=== PATIENT | male | born 1990 | race Two or more races ===

== ENCOUNTER 2018-08-06 16:34 | Emergency (ER) | payer BC ==
--- NOTE | 2018-08-06 18:04 | EDM.PDOC ---
ED HPI GENERAL MEDICAL PROBLEM - General Chief Complaint: Lower Extremity Injury/Pain Stated Complaint: RIGHT KNEE INJURY Time Seen by Provider: 08/06/18 17:30 Source of Information: Reports: Patient History Limitations: Reports: No Limitations - History of Present Illness INITIAL COMMENTS - FREE TEXT/NARRATIVE: HISTORY AND PHYSICAL: History of present illness: Patient is a 28 year old male who presents to the emergency room with complaints of medial and lateral right knee pain. He denies any injury, trauma or falls. He states that he has noticed mild pain to both the medial and lateral knee when ambulating, bearing weight or having to fully extend the extremity. He denies any numbness or tingling of the affected extremity. No calf pain or popliteal discomfort. No area of erythema or soft tissue swelling Review of systems: As per history of present illness and below otherwise all systems reviewed and negative. Past medical history: As per history of present illness and as reviewed below otherwise noncontributory. Surgical history: As per history of present illness and as reviewed below otherwise noncontributory. Social history: See social history for further information Family history: As per history of present illness and as reviewed below otherwise noncontributory. Physical exam: General: Well-developed and well-nourished 28 showed male. Alert and oriented. Nontoxic appearing and in no acute distress. HEENT: Atraumatic, normocephalic, pupils equal and reactive bilaterally, negative for conjunctival pallor or scleral icterus, mucous membranes moist, TMs normal bilaterally, throat clear, neck supple, nontender, trachea midline. No drooling or trismus noted. No meningeal signs. No hot potato voice noted. Lungs: Clear to auscultation, breath sounds equal bilaterally, chest nontender. Heart: S1S2, regular rate and rhythm without overt murmur Abdomen: Soft, nondistended, nontender. Negative for masses or hepatosplenomegaly. Negative for costovertebral tenderness. Pelvis: Stable nontender. Genitourinary: Deferred. Rectal: Deferred. Skin: Intact, warm, dry. No lesions or rashes noted. Extremities: Atraumatic, moves all extremities per self without difficulty or deficits, strong pedal pulse, cap refill less than 3 seconds. Negative drawer test, no knee instability noted, negative for cords or calf pain. Neurovascular unremarkable. Neuro: Awake, alert, oriented. Cranial nerves II through XII unremarkable. Cerebellum unremarkable. Motor and sensory unremarkable throughout. Exam nonfocal. Notes: We discussed doing an x-ray, he would like to move forward with this being completed. I offered Toradol IM, he declines. Discussed the limitations that x- ray offers. He will likely need to follow up with the orthopedic provider if he continues to have knee pain as this does sound like a ligament injury. Xray shows mild suprapatellar joint effusion. No fracture or dislocations. We will give her an Brayden wrap and crutches. Encouraged him to follow up with his primary care provider or the orthopedic provider in the next few days. Supportive care measures were reviewed and discussed. He voices understanding and is agreeable to plan of care. Denies any further questions or concerns at this time. Diagnostics: Knee x-ray Therapeutics: Crutches Prescription: Diclofenac Impression: Right knee pain Right knee effusion Plan: 1. Rest, ice, elevate the extremity as able. Please use the splint for comfort. 2. Tylenol and/or ibuprofen as needed for pain management. 3. Please follow-up with the orthopedic provider and/or your primary care provider in the next 1-2 days. Return to the ED as needed and as discussed Definitive disposition and diagnosis as appropriate pending reevaluation and review of above. right knee Pain Score (Numeric/FACES): 6 - Related Data Allergies Allergy/AdvReac Type Severity Reaction Status Date / Time No Known Allergies Allergy Verified 08/06/18 17:05 Home Meds: Home Meds Diclofenac Sodium [Voltaren] 50 mg PO TID PRN #20 tab.ec 08/06/18 [Rx] Past Medical History - Past Health History Medical/Surgical History: Denies Medical/Surgical History Musculoskeletal History: Reports: Gout - Past Surgical History Male Surgical History: Reports: Kidney Stone Extraction Social & Family History - Family History Family Medical History: Noncontributory - Tobacco Use Smoking Status *Q: Never Smoker - Caffeine Use Caffeine Use: Reports: Coffee - Recreational Drug Use Recreational Drug Use: No Review of Systems - Review of Systems Review Of Systems: ROS reveals no pertinent complaints other than HPI. ED EXAM, GENERAL - Physical Exam Exam: See Below (See dictation) Course - Vital Signs Last Recorded V/S: Last Vital Signs Temp 97.7 F 08/06/18 17:02 Pulse 101 H 08/06/18 17:02 Resp 16 08/06/18 17:02 BP 158/81 H 08/06/18 17:02 Pulse Ox 95 08/06/18 17:02 - Orders/Labs/Meds Orders: Active Orders 24 hr Category Date Time Status Knee 3V Rt [CR] Stat Exams 08/06/18 17:58 Taken DME for Discharge [COMM] Stat Oth 08/06/18 17:58 Ordered Departure - Departure Time of Disposition: 18:25 Disposition: Home, Self-Care 01 Clinical Impression: Effusion, right knee Right knee pain Qualifiers: Chronicity: acute Qualified Code(s): M25.561 - Pain in right knee - Discharge Information Prescriptions: Diclofenac Sodium [Voltaren] 50 mg PO TID PRN #20 tab.ec PRN Reason: Pain Instructions: Knee Sprain, Adult, [id number], Knee Effusion Referrals: PCP,None [Primary Care Provider] - Forms: ED Department Discharge Additional Instructions: The following information is given to patients seen in the emergency department who are being discharged to home. This information is to outline your options for follow-up care. We provide all patients seen in our emergency department with a follow-up referral. The need for follow-up, as well as the timing and circumstances, are variable depending upon the specifics of your emergency department visit. If you don't have a primary care physician on staff, we will provide you with a referral. We always advise you to contact your personal physician following an emergency department visit to inform them of the circumstance of the visit and for follow-up with them and/or the need for any referrals to a consulting specialist. The emergency department will also refer you to a specialist when appropriate. This referral assures that you have the opportunity for follow-up care with a specialist. All of these measure are taken in an effort to provide you with optimal care, which includes your follow-up. Under all circumstances we always encourage you to contact your private physician who remains a resource for coordinating your care. When calling for follow-up care, please make the office aware that this follow-up is from your recent emergency room visit. If for any reason you are refused follow-up, please contact the [facility] Emergency Department at and asked to speak to the emergency department charge nurse. [facility] [address] [place] [address] [facility] [address] [place] [address] [facility] Professional [facility] [address] [place] [address], [address] [place] [address] 1. Rest, ice, elevate the extremity as able. Please use the crutches for comfort. 2. Tylenol and/or ibuprofen as needed for pain management. 3. Please follow-up with the orthopedic provider and/or your primary care provider in the next 1-2 days. Return to the ED as needed and as discussed - My Orders Last 24 Hours: My Active Orders 08/06/18 17:58 Knee 3V Rt [CR] Stat DME for Discharge [COMM] Stat - Assessment/Plan Last 24 Hours: My Active Orders 08/06/18 17:58 Knee 3V Rt [CR] Stat DME for Discharge [COMM] Stat
--- NOTE | 2018-08-06 18:34 | CR ---
INDICATION: Right knee pain and swelling without history of injury. COMPARISON: None available. TECHNIQUE: The right knee was examined with AP and lateral views for a total of two views. FINDINGS: There is no sign of fracture or dislocation. The medial and lateral compartments are normal in height. There is a mild suprapatellar joint effusion. No soft tissue abnormality is seen. IMPRESSION: Mild suprapatellar joint effusion. No sign of any osseous abnormality. Dictated by Yonatan Mcallister MD @ Aug 06 2018 6:31PM Signed by Dr. Yonatan Mcallister @ Aug 06 2018 6:33PM
== END 2018-08-06 18:55 | disposition home or self-care (01) ==
LOC: MW.ED 16:34
DX: M25.461 Effusion, right knee (principal)
CPT/HCPCS: 73562-26-RT; 73562-RT; 99283